=== PATIENT | female | born 1935 | race Caucasian/White ===

== ENCOUNTER → 2021-03-20 | Outpatient (CLI) | payer MEDICARE, BC ==
--- NOTE | 2021-03-20 09:26 | RAD ---
EXAM: Right lower extremity venous Doppler sonogram. HISTORY: Pain and swelling. TECHNIQUE: [place] scale and color Doppler sonographic evaluation of the right lower extremity veins wit h spectral waveform analysis was performed. FINDINGS: There is normal color flow, normal compressibility and there are normal spectral waveforms in the common femoral, superficial femoral, popliteal, posterior tibial and greater saphenous veins. IMPRESSION: No Doppler evidence of lower extremity deep venous thrombosis. Electronically signed by: Margie Gonzales MD (03/20/2021 9:24 AM) [id number]
== END ==
LOC: US 08:37
PROVIDERS: ATTEND Family Medicine
DX: R79.89 Other specified abnormal findings of blood chemistry (principal); M79.89 Other specified soft tissue disorders
CPT/HCPCS: 93971

== ENCOUNTER 2021-03-31 00:39 | Inpatient (IN) | payer MEDICARE, BC ==
[~2021-03-31] VITALS: Ht 152.4 cm; Wt 41.9 kg
[2021-03-31] VITALS (16 sets, daily range): BP systolic 118–162; BP diastolic 56–92
[2021-03-31] MEDS ORDERED: CETI10TA16 PO (01:10)
[2021-03-31] MEDS ORDERED: DILT120C99 PO (01:10)
[2021-03-31] MEDS ORDERED: PRED20TA PO (01:10)
[2021-03-31] MEDS ORDERED: SERT50TA PO (01:10)
[2021-03-31] MEDS ORDERED: LENA10CA PO (01:10)
[2021-03-31] MEDS ORDERED: FAMO20TA5 PO (01:10)
[2021-03-31] MEDS ORDERED: APIX2.5T PO (01:10)
[2021-03-31] MEDS ORDERED: LATA7.5D OU (01:10)
[2021-03-31] MEDS ORDERED: TRAZ-118 PO (01:10)
[2021-03-31] MEDS ORDERED: HYDR25TA PO (01:10)
[2021-03-31] MEDS ORDERED: TIMO10DR5 EACHEYE (01:10)
[2021-03-31] MEDS ORDERED: HYDR30CR74 TP (01:10)
[2021-03-31] MEDS ORDERED: TRIA15OI TP (01:14)
[2021-03-31] MEDS ORDERED: VALA500T9 PO (01:14)
[2021-03-31 03:11] LABS: BASO # 0.1 x10^3/uL (0.0-0.2); BASO % 2 % (0-3); EOS % 0 % (0-3); HEMATOCRIT 21.1 % (36.0-47.0); LYMPH # 0.5 x10^3/uL (1.0-4.8); LYMPH % 14 % (24-48); MEAN CORPUSCULAR HEMOGLOBIN 31 pg (25-35); MEAN CORPUSCULAR HGB CONC 30 g/dL (31-37); MEAN CORPUSCULAR VOLUME 104 fL (79-100); MONO # 0.4 x10^3/uL (0.0-1.1); MONO % 10 % (0-9); NEUT # 2.6 x10^3/uL (1.8-7.7); NEUT % 75 % (31-73); PLATELET COUNT 96 x10^3/uL (140-400); RED BLOOD COUNT 2.03 x10^6/uL (3.50-5.40); RED CELL DISTRIBUTION WIDTH 22.5 % (11.5-14.5); WHITE BLOOD COUNT 3.5 x10^3/uL (4.0-11.0)
[2021-03-31 03:13] LABS: HEMOGLOBIN 6.4 g/dL (12.0-15.5)
[2021-03-31 03:24] LABS: CALCIUM 8.3 mg/dL (8.5-10.1); CREATININE 1.3 mg/dL (0.6-1.0); GFR 38.7; POTASSIUM 4.1 mmol/L (3.5-5.1)
[2021-03-31 04:11] LABS: % BASOS 1 % (0-3); % EOS 1 % (0-5); % LYMPHS 13 % (24-48); % MONOS 7 % (0-10); % SEGS 78 % (35-66); ANISOCYTOSIS MOD; HYPOCHROMIA SLIGHT; NUCLEATED RBC 1; PLT ESTIMATE DECREASED (ADEQUATE); POLYCHROMASIA SLIGHT
[2021-03-31 04:12] LABS: HELMET CELLS OCC; SPHEROCYTES OCC; TARGET CELLS OCC
[2021-03-31 04:13] LABS: OVALOCYTES OCC
[2021-03-31] MEDS ORDERED: hydrOXYzine 25 MG TABLET PO PRN (05:00)
[2021-03-31] MEDS ORDERED: traZODone 50 MG TABLET. PO PRN (05:00)
[2021-03-31] MEDS: LENALIDOMIDE PO SCH (09:00)
--- NOTE | 2021-03-31 09:21 | PDOC1 ---
History and Physical Date of Service: DOS: DATE: 03/31/21 TIME: 09:20 Chief Complaint: Chief Complain: Shortness of breath History of Present Illness: HPI: 86-year-old female with past medical history of bone cancer currently on chemotherapy that was diagnosed 3 years ago, GERD, atrial fibrillation on Eliquis who comes in with shortness of breath. She was also found to be in A. fib RVR with heart rate in the 120s. Patient is also a chronic smoker. Upon my encounter this morning patient was saturating in the 70s while on a nonrebreather at 15 L. She was also given 1 unit PRBC for hemoglobin of 6.4. I gave her 20 mg of IV Lasix and she improved she is currently saturating 92% on a 15 L nonrebreathing mask. ABG is fairly normal without any signs of CO2 retention. She is mildly acidotic with a pH of 7.29. Repeat hemoglobin is 7.7. Creatinine is 1.3 troponins are 49 Past Medical/Surgical History: PMH/PSH: History of atrial fibrillation, GERD, tobacco use, bone cancer and currently on chemotherapy Allergies: Allergies: Coded Allergies: No Known Drug Allergies (Unverified , 03/31/21) Family History: Family History: Reviewed with no relevant findings in the chart Social History: Social History: Currently smoking about a half a pack per day Current Medications: Current Medications Current Medications Diltiazem HCl 125 mg/Sodium Chloride 125 ml @ 5 mls/hr CONT PRN IV PER PROTOCOL; Start 03/31/21 at 02:15 Apixaban (Eliquis) 2.5 mg BID PO ; Start 03/31/21 at 09:00 Famotidine (Pepcid) 20 mg DAILY PO ; Start 03/31/21 at 09:00 Sertraline HCl (Zoloft) 50 mg DAILY PO ; Start 03/31/21 at 09:00 Timolol Maleate (Timoptic 0.5% Oph) 1 drop BID OU ; Start 03/31/21 at 09:00 Trazodone HCl (Desyrel) 50 mg PRN QHS PRN PO sleep; Start 03/31/21 at 05:00 Valacyclovir HCl (Valtrex) 500 mg BID PO ; Start 03/31/21 at 09:00 Latanoprost (Xalatan) 1 drop DAILY OU ; Start 03/31/21 at 09:00 Non-Formulary Medication (Lenalidomide (Revlimid)) 1 cap DAILY PO ; Start 03/31/21 at 09:00; Status UNV Hydroxyzine HCl (Atarax) 25 mg PRN TID PRN PO ITCHING; Start 03/31/21 at 05:00 Active Scripts Active Reported Valacyclovir (Valacyclovir Hcl) 500 Mg Tablet 1 Tab PO BID Trazodone Hcl 50 Mg Tablet 1-2 Tab PO PRN QHS PRN Timoptic 0.5% (Timolol Maleate) 10 Ml Drops 1 Drop EACHEYE BID 30 Days Zoloft (Sertraline Hcl) 50 Mg Tablet 1 Tab PO DAILY Revlimid (Lenalidomide) 10 Mg Capsule 1 Cap PO DAILY 21 Days one capsule on days 1-14 of 28 day cycle Latanoprost 0.005% Eye Drop (Latanoprost/Pf) 7.5 Ml Drops 1 Drop OU DAILY Hydroxyzine Hcl 25 Mg Tablet 1 Tab PO TID PRN Diltiazem 24HR Cd (Diltiazem Hcl) 120 Mg Cap.er.24h 1 Cap PO BID 30 Days Eliquis (Apixaban) 2.5 Mg Tablet 2.5 Mg PO BID ROS: Review of Systems Review of System REVIEW OF SYSTEMS: GENERAL: Denies weakness SKIN: No bruising, hair changes or rashes. EYES: No blurred, double or loss of vision. NOSE AND THROAT: No history of nosebleeds, hoarseness or sore throat. HEART: No history of palpitations, chest pain or shortness of breath on exertion. LUNGS: Positive for shortness of breath GASTROINTESTINAL: Denies changes in appetite, nausea, vomiting, diarrhea or constipation. GENITOURINARY: No history of frequency, urgency, hesitancy or nocturia. NEUROLOGIC: Denies history of numbness, tingling, or tremor. PSYCHIATRIC: No history of panic, anxiety or depression. ENDOCRINE: No history of heat or cold intolerance, polyuria or polydipsia. EXTREMITIES: Denies joint pain, pain on walking or stiffness. Physical Exam: Vital Signs: Vital Signs Date Time Temp Pulse Resp B/P (MAP) Pulse Ox O2 Delivery O2 Flow Rate FiO2 03/31/21 07:00 104 146/68 (94) 87 NonRebreather Mask 15.0 03/31/21 06:20 95.6 22 95.6 Physcial Exam: General: Frail and chronically ill-appearing. Cachectic. Temporal wasting. HEENT: Pupils equally round and reactive to light, EOMI, no discharge, normal conjunctiva Neck: Supple, no nuchal rigidity, no JVD, trachea midline, no tenderness Cardiac: RRR, no murmurs, no gallops, no rubs Chest/Lungs: CTAB, no wheeze, no rhonchi, minimal crackles Abdomen: soft, non-distended, no guarding, no peritoneal signs, non-tender Back: No tenderness Extremities: no edema, pulses intact, non-tender,capillary refill <3 sec bilateral upper and lower extremities, Neuro: Alert and oriented x 4, no focal deficits, normal speech Labs: Labs: Laboratory Tests Test 03/31/21 02:45 White Blood Count 3.5 x10^3/uL (4.0-11.0) Red Blood Count 2.03 x10^6/uL (3.50-5.40) Hemoglobin 6.4 g/dL (12.0-15.5) Hematocrit 21.1 % (36.0-47.0) Mean Corpuscular Volume 104 fL (79-100) Mean Corpuscular Hemoglobin 31 pg (25-35) Mean Corpuscular Hemoglobin Concent 30 g/dL (31-37) Red Cell Distribution Width 22.5 % (11.5-14.5) Platelet Count 96 x10^3/uL (140-400) Neutrophils (%) (Auto) 75 % (31-73) Lymphocytes (%) (Auto) 14 % (24-48) Monocytes (%) (Auto) 10 % (0-9) Eosinophils (%) (Auto) 0 % (0-3) Basophils (%) (Auto) 2 % (0-3) Neutrophils # (Auto) 2.6 x10^3/uL (1.8-7.7) Lymphocytes # (Auto) 0.5 x10^3/uL (1.0-4.8) Monocytes # (Auto) 0.4 x10^3/uL (0.0-1.1) Eosinophils # (Auto) 0.0 x10^3/uL (0.0-0.7) Basophils # (Auto) 0.1 x10^3/uL (0.0-0.2) Segmented Neutrophils % 78 % (35-66) Lymphocytes % 13 % (24-48) Monocytes % 7 % (0-10) Eosinophils % 1 % (0-5) Basophils % 1 % (0-3) Nucleated Red Blood Cells 1 Platelet Estimate Decreased (ADEQUATE) Polychromasia Slight Hypochromasia Slight Anisocytosis Mod Spherocytes Occ Target Cells Occ Ovalocytes Occ Helmet Cells Occ Sodium Level 141 mmol/L (136-145) Potassium Level 4.1 mmol/L (3.5-5.1) Chloride Level 108 mmol/L (98-107) Carbon Dioxide Level 25 mmol/L (21-32) Anion Gap 8 (6-14) Blood Urea Nitrogen 33 mg/dL (7-20) Creatinine 1.3 mg/dL (0.6-1.0) Estimated GFR (Cockcroft-Gault) 38.7 Glucose Level 121 mg/dL (70-99) Calcium Level 8.3 mg/dL (8.5-10.1) Troponin I High Sensitivity 49 ng/L (4-50) Laboratory Tests Test 03/31/21 02:45 White Blood Count 3.5 x10^3/uL (4.0-11.0) Red Blood Count 2.03 x10^6/uL (3.50-5.40) Hemoglobin 6.4 g/dL (12.0-15.5) Hematocrit 21.1 % (36.0-47.0) Mean Corpuscular Volume 104 fL (79-100) Mean Corpuscular Hemoglobin 31 pg (25-35) Mean Corpuscular Hemoglobin Concent 30 g/dL (31-37) Red Cell Distribution Width 22.5 % (11.5-14.5) Platelet Count 96 x10^3/uL (140-400) Neutrophils (%) (Auto) 75 % (31-73) Lymphocytes (%) (Auto) 14 % (24-48) Monocytes (%) (Auto) 10 % (0-9) Eosinophils (%) (Auto) 0 % (0-3) Basophils (%) (Auto) 2 % (0-3) Neutrophils # (Auto) 2.6 x10^3/uL (1.8-7.7) Lymphocytes # (Auto) 0.5 x10^3/uL (1.0-4.8) Monocytes # (Auto) 0.4 x10^3/uL (0.0-1.1) Eosinophils # (Auto) 0.0 x10^3/uL (0.0-0.7) Basophils # (Auto) 0.1 x10^3/uL (0.0-0.2) Segmented Neutrophils % 78 % (35-66) Lymphocytes % 13 % (24-48) Monocytes % 7 % (0-10) Eosinophils % 1 % (0-5) Basophils % 1 % (0-3) Nucleated Red Blood Cells 1 Platelet Estimate Decreased (ADEQUATE) Polychromasia Slight Hypochromasia Slight Anisocytosis Mod Spherocytes Occ Target Cells Occ Ovalocytes Occ Helmet Cells Occ Sodium Level 141 mmol/L (136-145) Potassium Level 4.1 mmol/L (3.5-5.1) Chloride Level 108 mmol/L (98-107) Carbon Dioxide Level 25 mmol/L (21-32) Anion Gap 8 (6-14) Blood Urea Nitrogen 33 mg/dL (7-20) Creatinine 1.3 mg/dL (0.6-1.0) Estimated GFR (Cockcroft-Gault) 38.7 Glucose Level 121 mg/dL (70-99) Calcium Level 8.3 mg/dL (8.5-10.1) Troponin I High Sensitivity 49 ng/L (4-50) Images: Images Chest x-ray reviewed from [facility] on March 30, 2021 showing left lower lobe infiltrates. Repeat chest x-ray shows minimal bilateral pleural effusions. Assessment/Plan Assessment/Plan Pancytopenia likely related to bone cancer Macrocytic anemia requiring 1 unit PRBC transfusion, possibly due to elemental deficiency A. fib RVR Tobacco abuse Left lower lobe pneumonia, possible gram-negative organisms Severe protein malnutrition Admit to hospitalist service for further management 1 unit PRBC transfusion for anemia Pending B12 levels Continue telemetry monitoring Cardiology consult Hematology consult for pancytopenia Continue Cardizem drip Continue empiric IV antibiotics Pending MRSA and Legionella urine antigen results Pending TSH O2 supplementation to maintain O2 saturation between 88 to 92% Nutrition consult Eliquis for DVT prophylaxis Protonix GI prophylaxis ADA diet CODE STATUS full code Discussed with RN and SW Disposition inpatient management as above DPOA: Son In addition to my E/M visit, advance care planning done with A total time of 20 minutes was spent from 930 to 950 face to face in discussion regarding the patient's goals of care, CODE STATUS. Justifications for Admission Other Justification MICHELLE MARTINEZ MD Mar 31, 2021 09:21
[2021-03-31 09:25] LABS: BASE EXCESS ABG -6 mmol/L (-3-3); HCO3 ABG 21 mmol/L (21-28); PCO2 ABG 44 mmHg (35-46); PO2 ABG 65 mmHg (65-108); SAT O2 ABG 90 % (92-99)
[2021-03-31 09:30] LABS: FIO2 ABG 15 NRB
--- NOTE | 2021-03-31 09:36 | RAD ---
EXAM: Chest, single view. HISTORY: Respiratory distress. COMPARISON: 03/30/2021 FINDINGS: A frontal view of the chest is obtained. There has been increase in moderate pleural effusi ons and diffuse lower lobe predominant interstitial and alveolar infiltrate. There are suspected part ial left lower lobe consolidation. There is a stable prominent cardiac silhouette. There is no pneumo thorax. There is a small benign lucent cortical lesion within the right femoral metaphysis, of no cli nical significance. IMPRESSION: 1. Increase in moderate pleural effusions and diffuse lower lobe predominant infiltrate. 2. Cardiomegaly. Electronically signed by: Margie Gonzales MD (03/31/2021 9:34 AM) [facility]
[2021-03-31] MEDS ORDERED: FUROSEMIDE 40 MG/4 ML VIAL. IVP ONE (09:45)
[2021-03-31] MEDS: LATANOPROST 0.005% OPHTH SOLUTION 2.5ML BOTTLE. OU SCH (10:52)
[2021-03-31] MEDS: TIMOLOL 0.5% OPHTH SOLUTION 5ML BOTTLE. OU SCH ×2 (10:52→19:13)
[2021-03-31] MEDS: valACYclovir 500 MG TABLET. PO SCH ×2 (10:52→19:13)
[2021-03-31] MEDS: APIXABAN 2.5 MG TABLET. PO SCH ×2 (10:53→19:13)
[2021-03-31] MEDS: FAMOTIDINE 20 MG TABLET. PO SCH (10:53)
[2021-03-31] MEDS: SERTRALINE 50 MG TABLET. PO SCH (10:53)
[2021-03-31 12:28] LABS: HEMATOCRIT 24.8 % (36.0-47.0); HEMOGLOBIN 7.7 g/dL (12.0-15.5)
--- NOTE | 2021-03-31 12:59 | PDOC2 ---
CONSULT Date of Consult Date of Consult DATE: 03/31/21 TIME: 12:58 Reason for Consult Reason for Consult: Atrial fibrillation with RVR Referring Physician Referring Physician: Dr. Fish Identification/Chief Complaint Chief Complaint Shortness of breath Source Source: Chart review History of Present Illness Reason for Visit: 86-year-old female initially presented to [facility] ED with worsening shortness of breath. She apparently has been short of breath for past 3 years but got worse recently. Her oxygen saturation however in the ED was 95 to 96% on room air. She was noted to have atrial fibrillation with RVR and transferred to [facility] for further management. Patient is a poor historian but she does appear to have previous history of atrial fibrillation since her medications included Cardizem and Eliquis. There is no history of chest pain, palpitations or syncope based on chart review. She is currently receiving chemotherapy for bone cancer. Past Medical History Past Medical History Permanent atrial fibrillation Bone cancer Family History Family History Not contributory Social History Social History Patient is a non-smoker and a nondrinker Current Medications Current Medications Current Medications Diltiazem HCl 125 mg/Sodium Chloride 125 ml @ 5 mls/hr CONT PRN IV PER PROTOCO L; Start 03/31/21 at 02:15 Apixaban (Eliquis) 2.5 mg BID PO Last administered on 03/31/21at 10:53; Start 03/31/21 at 09:00 Famotidine (Pepcid) 20 mg DAILY PO Last administered on 03/31/21 10:53; Start 03/31/21 at 09:00 Sertraline HCl (Zoloft) 50 mg DAILY PO Last administered on 03/31/21 10:53; Start 03/31/21 at 09:00 Timolol Maleate (Timoptic 0.5% Oph) 1 drop BID OU Last administered on 03/31/21at 10:52; Start 03/31/21 at 09:00 Trazodone HCl (Desyrel) 50 mg PRN QHS PRN PO sleep; Start 03/31/21 at 05:00 Valacyclovir HCl (Valtrex) 500 mg BID PO Last administered on 03/31/21at 10:52; Start 03/31/21 at 09:00 Latanoprost (Xalatan) 1 drop DAILY OU Last administered on 2/20/22at 10:52; Start 03/31/21 at 09:00 Non-Formulary Medication (Lenalidomide (Revlimid)) 1 cap DAILY PO ; Start 03/31/21 at 09:00; Status UNV Hydroxyzine HCl (Atarax) 25 mg PRN TID PRN PO ITCHING; Start 03/31/21 at 05:00 Furosemide (Lasix) 20 mg 1X ONCE IVP Last administered on 03/31/21at 10:05; Start 03/31/21 at 09:45; Stop 03/31/21 at 09:46; Status DC Active Scripts Active Reported Valacyclovir (Valacyclovir Hcl) 500 Mg Tablet 1 Tab PO BID Trazodone Hcl 50 Mg Tablet 1-2 Tab PO PRN QHS PRN Timoptic 0.5% (Timolol Maleate) 10 Ml Drops 1 Drop EACHEYE BID 30 Days Zoloft (Sertraline Hcl) 50 Mg Tablet 1 Tab PO DAILY Revlimid (Lenalidomide) 10 Mg Capsule 1 Cap PO DAILY 21 Days one capsule on days 1-14 of 28 day cycle Latanoprost 0.005% Eye Drop (Latanoprost/Pf) 7.5 Ml Drops 1 Drop OU DAILY Hydroxyzine Hcl 25 Mg Tablet 1 Tab PO TID PRN Diltiazem 24HR Cd (Diltiazem Hcl) 120 Mg Cap.er.24h 1 Cap PO BID 30 Days Eliquis (Apixaban) 2.5 Mg Tablet 2.5 Mg PO BID Allergies Allergies: Coded Allergies: No Known Drug Allergies (Unverified , 03/31/21) ROS Review of System Full review of systems cannot be obtained due to patient's baseline mental status Physical Exam General: mild distress HEENT: Atraumatic Lungs: Other (Bilateral scattered crepitations) Heart: Other (Tachycardic and irregular) Abdomen: Soft Extremities: No edema Neuro: Normal speech Psych/Mental Status: Mood NL Vitals VITALS Vital Signs Date Time Temp Pulse Resp B/P (MAP) Pulse Ox O2 Delivery O2 Flow Rate FiO2 03/31/21 10:22 96.2 98 131/83 (99) 92 NonRebreather Mask 15.0 96.2 03/31/21 06:20 22 Labs Labs Laboratory Tests Test 03/31/21 02:45 03/31/21 09:16 2/20/22 12:00 White Blood Count 3.5 x10^3/uL (4.0-11.0) Red Blood Count 2.03 x10^6/uL (3.50-5.40) Hemoglobin 6.4 g/dL (12.0-15.5) 7.7 g/dL (12.0-15.5) Hematocrit 21.1 % (36.0-47.0) 24.8 % (36.0-47.0) Mean Corpuscular Volume 104 fL (79-100) Mean Corpuscular Hemoglobin 31 pg (25-35) Mean Corpuscular Hemoglobin Concent 30 g/dL (31-37) 31 g/dL (31-37) Red Cell Distribution Width 22.5 % (11.5-14.5) Platelet Count 96 x10^3/uL (140-400) Neutrophils (%) (Auto) 75 % (31-73) Lymphocytes (%) (Auto) 14 % (24-48) Monocytes (%) (Auto) 10 % (0-9) Eosinophils (%) (Auto) 0 % (0-3) Basophils (%) (Auto) 2 % (0-3) Neutrophils # (Auto) 2.6 x10^3/uL (1.8-7.7) Lymphocytes # (Auto) 0.5 x10^3/uL (1.0-4.8) Monocytes # (Auto) 0.4 x10^3/uL (0.0-1.1) Eosinophils # (Auto) 0.0 x10^3/uL (0.0-0.7) Basophils # (Auto) 0.1 x10^3/uL (0.0-0.2) Segmented Neutrophils % 78 % (35-66) Lymphocytes % 13 % (24-48) Monocytes % 7 % (0-10) Eosinophils % 1 % (0-5) Basophils % 1 % (0-3) Nucleated Red Blood Cells 1 Platelet Estimate Decreased (ADEQUATE) Polychromasia Slight Hypochromasia Slight Anisocytosis Mod Spherocytes Occ Target Cells Occ Ovalocytes Occ Helmet Cells Occ Sodium Level 141 mmol/L (136-145) Potassium Level 4.1 mmol/L (3.5-5.1) Chloride Level 108 mmol/L (98-107) Carbon Dioxide Level 25 mmol/L (21-32) Anion Gap 8 (6-14) Blood Urea Nitrogen 33 mg/dL (7-20) Creatinine 1.3 mg/dL (0.6-1.0) Estimated GFR (Cockcroft-Gault) 38.7 Glucose Level 121 mg/dL (70-99) Calcium Level 8.3 mg/dL (8.5-10.1) Troponin I High Sensitivity 49 ng/L (4-50) O2 Saturation 90 % (92-99) Arterial Blood pH 7.29 (7.35-7.45) Arterial Blood pCO2 at Patient Temp 44 mmHg (35-46) Arterial Blood pO2 at Patient Temp 65 mmHg (65-108) Arterial Blood HCO3 21 mmol/L (21-28) Arterial Blood Base Excess -6 mmol/L (-3-3) FiO2 15 nrb Laboratory Tests Test 03/31/21 02:45 03/31/21 09:16 03/31/21 12:00 White Blood Count 3.5 x10^3/uL (4.0-11.0) Red Blood Count 2.03 x10^6/uL (3.50-5.40) Hemoglobin 6.4 g/dL (12.0-15.5) 7.7 g/dL (12.0-15.5) Hematocrit 21.1 % (36.0-47.0) 24.8 % (36.0-47.0) Mean Corpuscular Volume 104 fL (79-100) Mean Corpuscular Hemoglobin 31 pg (25-35) Mean Corpuscular Hemoglobin Concent 30 g/dL (31-37) 31 g/dL (31-37) Red Cell Distribution Width 22.5 % (11.5-14.5) Platelet Count 96 x10^3/uL (140-400) Neutrophils (%) (Auto) 75 % (31-73) Lymphocytes (%) (Auto) 14 % (24-48) Monocytes (%) (Auto) 10 % (0-9) Eosinophils (%) (Auto) 0 % (0-3) Basophils (%) (Auto) 2 % (0-3) Neutrophils # (Auto) 2.6 x10^3/uL (1.8-7.7) Lymphocytes # (Auto) 0.5 x10^3/uL (1.0-4.8) Monocytes # (Auto) 0.4 x10^3/uL (0.0-1.1) Eosinophils # (Auto) 0.0 x10^3/uL (0.0-0.7) Basophils # (Auto) 0.1 x10^3/uL (0.0-0.2) Segmented Neutrophils % 78 % (35-66) Lymphocytes % 13 % (24-48) Monocytes % 7 % (0-10) Eosinophils % 1 % (0-5) Basophils % 1 % (0-3) Nucleated Red Blood Cells 1 Platelet Estimate Decreased (ADEQUATE) Polychromasia Slight Hypochromasia Slight Anisocytosis Mod Spherocytes Occ Target Cells Occ Ovalocytes Occ Helmet Cells Occ Sodium Level 141 mmol/L (136-145) Potassium Level 4.1 mmol/L (3.5-5.1) Chloride Level 108 mmol/L (98-107) Carbon Dioxide Level 25 mmol/L (21-32) Anion Gap 8 (6-14) Blood Urea Nitrogen 33 mg/dL (7-20) Creatinine 1.3 mg/dL (0.6-1.0) Estimated GFR (Cockcroft-Gault) 38.7 Glucose Level 121 mg/dL (70-99) Calcium Level 8.3 mg/dL (8.5-10.1) Troponin I High Sensitivity 49 ng/L (4-50) O2 Saturation 90 % (92-99) Arterial Blood pH 7.29 (7.35-7.45) Arterial Blood pCO2 at Patient Temp 44 mmHg (35-46) Arterial Blood pO2 at Patient Temp 65 mmHg (65-108) Arterial Blood HCO3 21 mmol/L (21-28) Arterial Blood Base Excess -6 mmol/L (-3-3) FiO2 15 nrb Assessment/Plan Assessment/Plan 1. Atrial fibrillation, most probably permanent. Heart rate probably elevated due to respiratory distress. Continue to titrate intravenous Cardizem for better rate control. Continue Eliquis for stroke prophylaxis. Check 2D echo to assess LV systolic function. 2. Pneumonia: Continue antibiotics per primary team 3. Anemia: Per IM 4. Acute renal insufficiency, most probably secondary to dehydration. Continue intravenous fluids. 5. Bone cancer: Chemotherapy per oncology team Thank you for your consultation JET MEJIA MD Mar 31, 2021 12:58
[2021-03-31] MEDS ORDERED: LORazepam 0.5 MG TABLET PO PRN (13:30)
[2021-03-31] MEDS ORDERED: DOCUSATE SODIUM 100 MG CAPSULE. PO PRN (13:30)
[2021-03-31] MEDS ORDERED: PROCHLORPERAZINE 10 MG/2 ML VIAL. IV PRN (13:30)
[2021-03-31] MEDS ORDERED: diphenhydrAMINE 50 MG/ML VIAL IVP PRN (13:30)
[2021-03-31] MEDS ORDERED: ONDANSETRON PF 4 MG/2 ML VIAL. IVP PRN (13:30)
[2021-03-31] MEDS ORDERED: ACETAMINOPHEN 325 MG TABLET. PO PRN (13:30)
[2021-03-31] MEDS ORDERED: ZOLPIDEM 5 MG TABLET. PO PRN (13:30)
[2021-03-31] MEDS ORDERED: DEXTROSE 50% 25 GM / 50ML DISP.SYRIN. IV PRN (13:30)
[2021-03-31] MEDS ORDERED: diphenhydrAMINE HCL 25 MG CAPSULE PO PRN ×2 (13:30)
[2021-03-31] MEDS ORDERED: SENNOSIDES 8.6 MG TABLET PO PRN (13:30)
[2021-03-31] MEDS: DOXYCYCLINE HYCLATE 100 MG TABLET PO SCH ×2 (14:34→19:13)
[2021-03-31] MEDS: CEFEPIME HCL IV Push 1 GM VIAL. IVP SCH (14:34)
[2021-03-31 15:15] LABS: FECAL OB PT NEGATIVE (NEG)
[2021-03-31] MEDS: NICOTINE 14MG PATCH. TD SCH (19:12)
[2021-03-31] MEDS ORDERED: ONDANSETRON PF 4 MG/2 ML VIAL. IVP ONE (21:45)
[2021-03-31] MEDS ORDERED: ALBUTEROL SULFATE 2.5 MG/3 ML NEBU. NEB PRN (21:45)
[2021-03-31] MEDS ORDERED: guaiFENesin DM 200MG/20MG 10 ML SYRUP PO PRN (21:45)
[2021-03-31] MEDS: IPRATRPIUM/ALBUTEROL 0.5/2.5MG 3 ML NEBU. NEB SCH (22:06)
[2021-03-31] MEDS: BUDESONIDE 0.5 MG/2 ML NEBU. NEB SCH (22:06)
[2021-04-01 02:26] VITALS: BP 123/58
[2021-04-01 04:18] LABS: BASO % 1 % (0-3); EOS % 0 % (0-3); HEMATOCRIT 24.2 % (36.0-47.0); HEMOGLOBIN 7.7 g/dL (12.0-15.5); LYMPH # 0.3 x10^3/uL (1.0-4.8); LYMPH % 6 % (24-48); MEAN CORPUSCULAR HEMOGLOBIN 32 pg (25-35); MEAN CORPUSCULAR HGB CONC 32 g/dL (31-37); MEAN CORPUSCULAR VOLUME 100 fL (79-100); MONO # 0.6 x10^3/uL (0.0-1.1); MONO % 11 % (0-9); NEUT # 4.4 x10^3/uL (1.8-7.7); NEUT % 83 % (31-73); PLATELET COUNT 77 x10^3/uL (140-400); RED BLOOD COUNT 2.43 x10^6/uL (3.50-5.40); RED CELL DISTRIBUTION WIDTH 22.9 % (11.5-14.5); WHITE BLOOD COUNT 5.3 x10^3/uL (4.0-11.0)
[2021-04-01 04:28] LABS: CALCIUM 7.9 mg/dL (8.5-10.1); CREATININE 1.3 mg/dL (0.6-1.0); GFR 38.7; PHOSPHORUS 5.6 mg/dL (2.6-4.7)
[2021-04-01] MEDS: LEVOTHYROXINE 50 MCG TABLET PO SCH ×2 (05:58→06:00)
[2021-04-01] MEDS: IPRATRPIUM/ALBUTEROL 0.5/2.5MG 3 ML NEBU. NEB SCH ×4 (06:54→21:02)
[2021-04-01] MEDS: BUDESONIDE 0.5 MG/2 ML NEBU. NEB SCH ×2 (06:54→21:02)
[2021-04-01 07:00] VITALS: BP 116/54
[2021-04-01] MEDS: LATANOPROST 0.005% OPHTH SOLUTION 2.5ML BOTTLE. OU SCH (09:00)
[2021-04-01] MEDS: NICOTINE 14MG PATCH. TD SCH (09:00)
[2021-04-01] MEDS: LENALIDOMIDE PO SCH (09:00)
[2021-04-01] MEDS: FAMOTIDINE 20 MG TABLET. PO SCH (09:00)
[2021-04-01] MEDS: DOXYCYCLINE HYCLATE 100 MG TABLET PO SCH ×2 (09:00→21:00)
[2021-04-01] MEDS: TIMOLOL 0.5% OPHTH SOLUTION 5ML BOTTLE. OU SCH ×2 (09:00→22:22)
[2021-04-01] MEDS: valACYclovir 500 MG TABLET. PO SCH ×2 (09:00→21:00)
[2021-04-01] MEDS: SERTRALINE 50 MG TABLET. PO SCH (09:00)
[2021-04-01] MEDS ORDERED: EPOE200014 IJ (10:26)
[2021-04-01 10:51] VITALS: BP 126/60
--- NOTE | 2021-04-01 11:23 | PDOC ---
MEGAN DREW ASSESSMENT MANAGER 04/01/21 1123: CARDIO Progress Notes Date and Time Date of Service 04/01/21 Time of Evaluation 1115 Subjective Subjective: Other (on BiPAP) Vitals Vitals Vital Signs Date Time Temp Pulse Resp B/P (MAP) Pulse Ox O2 Delivery O2 Flow Rate FiO2 04/01/21 11:10 100 BiPAP/CPAP 04/01/21 10:51 97.8 83 21 126/60 (82) 60.0 97.8 Weight Weight [ ] Input and Output Intake and Output Intake and Output 04/01/21 07:00 Intake Total 250 ml Output Total 1000 ml Balance -750 ml Intake Oral 250 ml Output Urine Total 1000 ml # Voids 3 Laboratory Labs Laboratory Tests Test 03/31/21 12:00 03/31/21 14:00 04/01/21 02:55 Hemoglobin 7.7 g/dL (12.0-15.5) 7.7 g/dL (12.0-15.5) Hematocrit 24.8 % (36.0-47.0) 24.2 % (36.0-47.0) Mean Corpuscular Hemoglobin Concent 31 g/dL (31-37) 32 g/dL (31-37) Stool Occult Blood Negative (NEG) White Blood Count 5.3 x10^3/uL (4.0-11.0) Red Blood Count 2.43 x10^6/uL (3.50-5.40) Mean Corpuscular Volume 100 fL (79-100) Mean Corpuscular Hemoglobin 32 pg (25-35) Red Cell Distribution Width 22.9 % (11.5-14.5) Platelet Count 77 x10^3/uL (140-400) Neutrophils (%) (Auto) 83 % (31-73) Lymphocytes (%) (Auto) 6 % (24-48) Monocytes (%) (Auto) 11 % (0-9) Eosinophils (%) (Auto) 0 % (0-3) Basophils (%) (Auto) 1 % (0-3) Neutrophils # (Auto) 4.4 x10^3/uL (1.8-7.7) Lymphocytes # (Auto) 0.3 x10^3/uL (1.0-4.8) Monocytes # (Auto) 0.6 x10^3/uL (0.0-1.1) Eosinophils # (Auto) 0.0 x10^3/uL (0.0-0.7) Basophils # (Auto) 0.0 x10^3/uL (0.0-0.2) Sodium Level 141 mmol/L (136-145) Potassium Level 4.0 mmol/L (3.5-5.1) Chloride Level 106 mmol/L (98-107) Carbon Dioxide Level 24 mmol/L (21-32) Anion Gap 11 (6-14) Blood Urea Nitrogen 35 mg/dL (7-20) Creatinine 1.3 mg/dL (0.6-1.0) Estimated GFR (Cockcroft-Gault) 38.7 Glucose Level 108 mg/dL (70-99) Calcium Level 7.9 mg/dL (8.5-10.1) Phosphorus Level 5.6 mg/dL (2.6-4.7) Magnesium Level 2.0 mg/dL (1.8-2.4) Physical Exam HEENT: Neck Supple W Full Motion Chest: Symmetric LUNGS: Other (on BiPAP) Heart: irregularly irregular (AFIB, rate near 115) Abdomen: Soft N/T Extremities: No Edema Neurology: other (sleeping ) Assessment Assessment 1. Atrial fibrillation, most probably permanent. Heart rate probably elevated due to respiratory distress. Continue IV Cardizem for rate control- transition to PO when able to take oral. Hold Eliquis with anemia, thrombocytopenia. Echo pending 2. Acute on chronic respiratory failure acute probable diastolic CHF, pleural effusion and probable pneumonia: Continue antibiotics per primary team. s/p IV Lasix. Requiring BiPAP 3. Anemia, thrombocytopenia: requiring transfusion; Per IM 4. JÚNIOR, ? CKD; Cr stable 5. Bone cancer: on chemotherapy 6. Hypothyroidism; TSH 12 Justicifation of Admission Dx: Justifications for Admission: Justification of Admission Dx: Yes Comments: Acute respiratory failure Acute probable diastolic CHF PNA AFIB with RVR JET MEJIA MD 04/02/21 0653: CARDIO Progress Notes Assessment Assessment Patient seen and examined 04/01/2021. Agree with CAR HOP's assessment and plan. Atrial fibrillation, most probably permanent with heart rate better controlled with Cardizem gtt. Change Cardizem to p.o. when able 2D echo showed LVEF 55% with mild to moderate mitral stenosis, moderate mitral regurgitation and moderate to severe tricuspid regurgitation. Acute on chronic diastolic heart failure better compensated Continue management for anemia per MEGAN BETTENCOURT APRN Apr 01, 2021 11:23 JET MEJIA MD Apr 02, 2021 06:53
--- NOTE | 2021-04-01 12:30 | NUR ---
SS following for discharge planning. SS reviewed pt chart and discussed with pt RN. Pt is from home and is currently on BIPAP at 60%. Cardiology following. Ovidio drip. Pt on IV Cefepime. SS will continue to follow for discharge planning.
--- NOTE | 2021-04-01 14:06 | PDOC ---
[employer] PROGRESS NOTE Date of Service DOS: DATE: 04/01/21 TIME: 14:05 Chief Complaint Chief Complaint Assessment/Plan Pancytopenia likely related to bone cancer Macrocytic anemia requiring 1 unit PRBC transfusion, possibly due to elemental deficiency A. fib RVR Tobacco abuse Left lower lobe pneumonia, possible gram-negative organisms Severe protein malnutrition Admit to hospitalist service for further management 1 unit PRBC transfusion for anemia Pending B12 levels Continue telemetry monitoring Cardiology consult Hematology consult for pancytopenia Continue Cardizem drip Continue empiric IV antibiotics Pending MRSA and Legionella urine antigen results Pending TSH O2 supplementation to maintain O2 saturation between 88 to 92% Nutrition consult Eliquis for DVT prophylaxis Protonix GI prophylaxis ADA diet CODE STATUS full code Discussed with RN and SW Disposition inpatient management as above DPOA: Son History of Present Illness History of Present Illness 86-year-old female with past medical history of bone cancer currently on chemotherapy that was diagnosed 3 years ago, GERD, atrial fibrillation on Eliquis who comes in with shortness of breath. She was also found to be in A. fib RVR with heart rate in the 120s. Patient is also a chronic smoker. Upon my encounter this morning patient was saturating in the 70s while on a nonrebreather at 15 L. She was also given 1 unit PRBC for hemoglobin of 6.4. I gave her 20 mg of IV Lasix and she improved she is currently saturating 92% on a 15 L nonrebreathing mask. ABG is fairly normal without any signs of CO2 retention. She is mildly acidotic with a pH of 7.29. Repeat hemoglobin is 7.7. Creatinine is 1.3 troponins are 49 04/01/2021 No acute events overnight. Patient seen examined bedside. Patient currently on BiPAP and saturating at 60 to 80%. Able to get her O2 saturation up to 90%. Pulmonology has been consulted. Discussed CODE STATUS with patient and also son and son states that the patient still wants to be full code. A total of 35 minutes of critical care time was spent in reviewing chart, labs, and images. Discussed with RN and SW. Vitals/I&O Vitals/I&O: Vital Signs Date Time Temp Pulse Resp B/P (MAP) Pulse Ox O2 Delivery O2 Flow Rate FiO2 04/01/21 13:21 91 BiPAP/CPAP 04/01/21 10:51 97.8 83 21 126/60 (82) 60.0 97.8 I & O 03/31/21 03/31/21 04/01/21 15:00 23:00 07:00 Intake Total 100 ml 150 ml 0 ml Output Total 1000 ml Balance 100 ml 150 ml -1000 ml Physical Exam General: mild distress Heart: Regular rate, Other (Tachycardic and irregular) Lungs: Crackles Abdomen: Soft Extremities: No clubbing, No edema Skin: No rashes Labs Labs: Laboratory Tests Test 03/31/21 14:55 04/01/21 02:55 Nasal Screen MRSA (PCR) Negative (NEGATIVE) White Blood Count 5.3 x10^3/uL (4.0-11.0) Red Blood Count 2.43 x10^6/uL (3.50-5.40) Hemoglobin 7.7 g/dL (12.0-15.5) Hematocrit 24.2 % (36.0-47.0) Mean Corpuscular Volume 100 fL (79-100) Mean Corpuscular Hemoglobin 32 pg (25-35) Mean Corpuscular Hemoglobin Concent 32 g/dL (31-37) Red Cell Distribution Width 22.9 % (11.5-14.5) Platelet Count 77 x10^3/uL (140-400) Neutrophils (%) (Auto) 83 % (31-73) Lymphocytes (%) (Auto) 6 % (24-48) Monocytes (%) (Auto) 11 % (0-9) Eosinophils (%) (Auto) 0 % (0-3) Basophils (%) (Auto) 1 % (0-3) Neutrophils # (Auto) 4.4 x10^3/uL (1.8-7.7) Lymphocytes # (Auto) 0.3 x10^3/uL (1.0-4.8) Monocytes # (Auto) 0.6 x10^3/uL (0.0-1.1) Eosinophils # (Auto) 0.0 x10^3/uL (0.0-0.7) Basophils # (Auto) 0.0 x10^3/uL (0.0-0.2) Sodium Level 141 mmol/L (136-145) Potassium Level 4.0 mmol/L (3.5-5.1) Chloride Level 106 mmol/L (98-107) Carbon Dioxide Level 24 mmol/L (21-32) Anion Gap 11 (6-14) Blood Urea Nitrogen 35 mg/dL (7-20) Creatinine 1.3 mg/dL (0.6-1.0) Estimated GFR (Cockcroft-Gault) 38.7 Glucose Level 108 mg/dL (70-99) Calcium Level 7.9 mg/dL (8.5-10.1) Phosphorus Level 5.6 mg/dL (2.6-4.7) Magnesium Level 2.0 mg/dL (1.8-2.4) Comment Review of Relevant I have reviewed the following items morris (where applicable) has been applied. Medications: Current Medications Medications (Trade) Dose Ordered Sig/Jaqueline Route PRN Reason Start Time Stop Time Status Last Admin Dose Admin Nicotine (Nicoderm Cq 14mg) 1 patch DAILY TD 03/31/21 19:00 03/31/21 19:12 Ondansetron HCl (Zofran) 4 mg 1X ONCE IVP 03/31/21 21:45 03/31/21 21:46 DC 03/31/21 21:55 Budesonide (Pulmicort) 0.5 mg RTBID NEB 03/31/21 21:45 04/01/21 06:54 Albuterol/ Ipratropium (Duoneb) 3 ml RTQID NEB 03/31/21 21:45 04/01/21 11:09 Justifications for Admission Other Justification Anemia MICHELLE MARTINEZ MD Apr 01, 2021 14:06
[2021-04-01] MEDS: CEFEPIME HCL IV Push 1 GM VIAL. IVP SCH (14:59)
[2021-04-01 15:00] VITALS: BP 127/59
[2021-04-01 19:00] VITALS: BP 147/65
--- NOTE | 2021-04-01 22:30 | NUR ---
Pt awake and stating that she wants a drink of water. Removed pt from BIPAP and placed on nonrebreather. Gave pt a small sip of water via cup and pt began coughing and choking and showing signs of aspiration. Will keep pt NPO until pt can be eval by speech therapy. Held all po meds at this time. Will pass this assessment on to the day RN. Call light within reach. Bed alarm on. Mitts remain on pt because pt keeps trying to pull off her BIPAP and is desating down into the 70s%. Pt remains on cardizem gtt with her HR in afib in the low 100s. Will monitor.
[2021-04-01 23:00] VITALS: BP 135/62
[2021-04-02 03:00] VITALS: BP 135/64
[2021-04-02 04:18] LABS: BASO % 1 % (0-3); EOS % 0 % (0-3); HEMATOCRIT 21.8 % (36.0-47.0); LYMPH # 0.4 x10^3/uL (1.0-4.8); LYMPH % 10 % (24-48); MEAN CORPUSCULAR HEMOGLOBIN 31 pg (25-35); MEAN CORPUSCULAR HGB CONC 31 g/dL (31-37); MEAN CORPUSCULAR VOLUME 100 fL (79-100); MONO # 0.5 x10^3/uL (0.0-1.1); MONO % 12 % (0-9); NEUT # 2.9 x10^3/uL (1.8-7.7); NEUT % 78 % (31-73); PLATELET COUNT 79 x10^3/uL (140-400); RED BLOOD COUNT 2.19 x10^6/uL (3.50-5.40); WHITE BLOOD COUNT 3.8 x10^3/uL (4.0-11.0)
[2021-04-02 04:27] LABS: HEMOGLOBIN 6.8 g/dL (12.0-15.5)
[2021-04-02] MEDS: LEVOTHYROXINE 50 MCG TABLET PO SCH (04:45)
[2021-04-02 06:49] LABS: CALCIUM 8.1 mg/dL (8.5-10.1); CREATININE 1.6 mg/dL (0.6-1.0); GFR 30.5; MAGNESIUM 2.2 mg/dL (1.8-2.4); POTASSIUM 3.6 mmol/L (3.5-5.1)
--- NOTE | 2021-04-02 06:52 | CARD ---
MR#: [id number] Date of Study: 04/01/2021 Ordering Physician: JET TROTTER, Referring Physician: JET TROTTER, Tech: Cyndi Benson RUST APPROVED REPORT EXAM: Two-dimensional and M-mode echocardiogram with Doppler and color Doppler. Other Information Quality : AverageHR: 112bpm INDICATION Atrial Fibrillation 2D DIMENSIONS Left Atrium(2D)4.8 (1.6-4.0cm)IVSd1.0 (0.7-1.1cm) Aortic Root(2D)2.8 (2.0-3.7cm)LVDd4.4 (3.9-5.9cm) LVOT Diameter2.0 (1.8-2.4cm)PWd1.1 (0.7-1.1cm) LVDs3.1 (2.5-4.0cm)FS (%) 30.4 % SV51.1 mlLVEF(%)58.1 (>50%) Aortic Valve AoV Peak Wan.156.6cm/sAoV VTI26.0cm AO Peak GR.9.8mmHgLVOT VTI 16.19cm AO Mean GR.4mmHgAI P 1/2 [id number] Mitral Valve MV E Xyqctstx607.0cm/sMV E Peak Gr.101mmHg MV DECEL [id number] A Mqnvgcco24.0cm/s MV E Mean Gr.5mmHgE/A Ratio2.5 Tricuspid Valve TR P. Vnctidqb664kc/sRAP HGTQCIMT3daPq TR Peak Gr.80otJdNEVU69fxZz LEFT VENTRICLE The left ventricle is normal size. There is normal left ventricular wall thickness. The left ventricl e systolic function is normal The ejection fraction is estimated at 55% There is normal LV segmental wall motion. RIGHT VENTRICLE The right ventricle is normal size. There is normal right ventricular wall thickness. The right ventr icular systolic function is normal. ATRIA The left atrium is severely dilated. The right atrium size is normal. The interatrial septum is intac t with no evidence for an atrial septal defect or patent foramen ovale as noted on 2-D or Doppler issa ging. AORTIC VALVE The aortic valve is thickened but opens well. Doppler and Color Flow revealed mild to moderate aortic regurgitation. There is no significant aortic valvular stenosis. Calculated aortic valve area is 1.7 4 cm2 with maximum pressure gradient of 14 mmHg and mean pressure gradient of 5 mmHg. MITRAL VALVE The mitral valve is mildly thickened. There is no evidence of mitral valve prolapse. Mild to moderate mitral stenosis. Doppler and Color-flow revealed moderate mitral regurgitation. TRICUSPID VALVE The tricuspid valve is normal in structure and function. Doppler and Color Flow revealed moderate to severe tricuspid regurgitation with an estimated PAP 47 mmHg. There is no tricuspid valve stenosis. PULMONIC VALVE The pulmonic valve is not well visualized. Doppler and Color Flow revealed no pulmonic valvular regur gitation. GREAT VESSELS The aortic root is normal in size. The IVC is normal in size and collapses >50% with inspiration. PERICARDIAL EFFUSION There is no evidence of significant pericardial effusion. Critical Notification Critical Value: No <Conclusion> The left ventricle systolic function is normal The ejection fraction is estimated at 55% There is normal LV segmental wall motion. The left atrium is severely dilated. Mild to moderate aortic regurgitation. Mild to moderate mitral stenosis. Moderate mitral regurgitation. Moderate to severe tricuspid regurgitation with an estimated PAP 47 mmHg. There is no evidence of significant pericardial effusion. Signed by : Jet Trotter, Electronically Approved : 04/02/2021 06:51:55
[2021-04-02 07:00] VITALS: BP 134/60
[2021-04-02] MEDS: BUDESONIDE 0.5 MG/2 ML NEBU. NEB SCH (07:35)
[2021-04-02] MEDS: IPRATRPIUM/ALBUTEROL 0.5/2.5MG 3 ML NEBU. NEB SCH ×2 (07:35→12:02)
[2021-04-02] MEDS ORDERED: ASPIRIN ENTERIC COATED 81 MG TABLET.DR. PO SCH (08:00)
[2021-04-02 09:50] VITALS: BP 134/60
[2021-04-02 10:05] VITALS: BP 127/61
--- NOTE | 2021-04-02 10:37 | NUR ---
SS following up with discharge planning. SS reviewed pt chart and discussed with pt RN. Pt is currently on the BIPAP at 60%. Pt aspirating. NPO. ST ordered. Hemoglobin low. Blood today. Pulmonology consulted. Pt on IV Cefepime. Cardizem drip. Per RN, pt's oxygen desat's when off the BIPAP. Pt confused. Mitts in place. SS contacted pt's son and discussed. DPOA paperwork received. Pt's son requested to SS and RN that he would like pt to be DNR. Pt's son agreeable to informational with hospice with no preference of company. Referral phoned and faxed to [facility], ; fax [phone]. SS will continue to follow for discharge planning.
--- NOTE | 2021-04-02 10:44 | PDOC ---
PULMONARY PROGRESS NOTES DATE: 04/02/21 TIME: 10:44 Vitals Vital Signs Date Time Temp Pulse Resp B/P (MAP) Pulse Ox O2 Delivery O2 Flow Rate FiO2 04/02/21 10:05 97.3 114 20 127/61 97.3 04/02/21 08:00 Bi-pap 60.0 04/02/21 07:36 98 Lungs: Crackles Labs Laboratory Tests Test 03/31/21 12:00 03/31/21 14:00 03/31/21 14:55 04/01/21 02:55 Hemoglobin 7.7 g/dL (12.0-15.5) 7.7 g/dL (12.0-15.5) Hematocrit 24.8 % (36.0-47.0) 24.2 % (36.0-47.0) Mean Corpuscular Hemoglobin Concent 31 g/dL (31-37) 32 g/dL (31-37) Stool Occult Blood Negative (NEG) Nasal Screen MRSA (PCR) Negative (NEGATIVE) White Blood Count 5.3 x10^3/uL (4.0-11.0) Red Blood Count 2.43 x10^6/uL (3.50-5.40) Mean Corpuscular Volume 100 fL (79-100) Mean Corpuscular Hemoglobin 32 pg (25-35) Red Cell Distribution Width 22.9 % (11.5-14.5) Platelet Count 77 x10^3/uL (140-400) Neutrophils (%) (Auto) 83 % (31-73) Lymphocytes (%) (Auto) 6 % (24-48) Monocytes (%) (Auto) 11 % (0-9) Eosinophils (%) (Auto) 0 % (0-3) Basophils (%) (Auto) 1 % (0-3) Neutrophils # (Auto) 4.4 x10^3/uL (1.8-7.7) Lymphocytes # (Auto) 0.3 x10^3/uL (1.0-4.8) Monocytes # (Auto) 0.6 x10^3/uL (0.0-1.1) Eosinophils # (Auto) 0.0 x10^3/uL (0.0-0.7) Basophils # (Auto) 0.0 x10^3/uL (0.0-0.2) Sodium Level 141 mmol/L (136-145) Potassium Level 4.0 mmol/L (3.5-5.1) Chloride Level 106 mmol/L (98-107) Carbon Dioxide Level 24 mmol/L (21-32) Anion Gap 11 (6-14) Blood Urea Nitrogen 35 mg/dL (7-20) Creatinine 1.3 mg/dL (0.6-1.0) Estimated GFR (Cockcroft-Gault) 38.7 Glucose Level 108 mg/dL (70-99) Calcium Level 7.9 mg/dL (8.5-10.1) Phosphorus Level 5.6 mg/dL (2.6-4.7) Magnesium Level 2.0 mg/dL (1.8-2.4) Test 04/02/21 02:50 White Blood Count 3.8 x10^3/uL (4.0-11.0) Red Blood Count 2.19 x10^6/uL (3.50-5.40) Hemoglobin 6.8 g/dL (12.0-15.5) Hematocrit 21.8 % (36.0-47.0) Mean Corpuscular Volume 100 fL (79-100) Mean Corpuscular Hemoglobin 31 pg (25-35) Mean Corpuscular Hemoglobin Concent 31 g/dL (31-37) Red Cell Distribution Width 23.0 % (11.5-14.5) Platelet Count 79 x10^3/uL (140-400) Neutrophils (%) (Auto) 78 % (31-73) Lymphocytes (%) (Auto) 10 % (24-48) Monocytes (%) (Auto) 12 % (0-9) Eosinophils (%) (Auto) 0 % (0-3) Basophils (%) (Auto) 1 % (0-3) Neutrophils # (Auto) 2.9 x10^3/uL (1.8-7.7) Lymphocytes # (Auto) 0.4 x10^3/uL (1.0-4.8) Monocytes # (Auto) 0.5 x10^3/uL (0.0-1.1) Eosinophils # (Auto) 0.0 x10^3/uL (0.0-0.7) Basophils # (Auto) 0.0 x10^3/uL (0.0-0.2) Sodium Level 144 mmol/L (136-145) Potassium Level 3.6 mmol/L (3.5-5.1) Chloride Level 109 mmol/L (98-107) Carbon Dioxide Level 25 mmol/L (21-32) Anion Gap 10 (6-14) Blood Urea Nitrogen 45 mg/dL (7-20) Creatinine 1.6 mg/dL (0.6-1.0) Estimated GFR (Cockcroft-Gault) 30.5 Glucose Level 104 mg/dL (70-99) Calcium Level 8.1 mg/dL (8.5-10.1) Magnesium Level 2.2 mg/dL (1.8-2.4) Laboratory Tests Test 04/02/21 02:50 White Blood Count 3.8 x10^3/uL (4.0-11.0) Red Blood Count 2.19 x10^6/uL (3.50-5.40) Hemoglobin 6.8 g/dL (12.0-15.5) Hematocrit 21.8 % (36.0-47.0) Mean Corpuscular Volume 100 fL (79-100) Mean Corpuscular Hemoglobin 31 pg (25-35) Mean Corpuscular Hemoglobin Concent 31 g/dL (31-37) Red Cell Distribution Width 23.0 % (11.5-14.5) Platelet Count 79 x10^3/uL (140-400) Neutrophils (%) (Auto) 78 % (31-73) Lymphocytes (%) (Auto) 10 % (24-48) Monocytes (%) (Auto) 12 % (0-9) Eosinophils (%) (Auto) 0 % (0-3) Basophils (%) (Auto) 1 % (0-3) Neutrophils # (Auto) 2.9 x10^3/uL (1.8-7.7) Lymphocytes # (Auto) 0.4 x10^3/uL (1.0-4.8) Monocytes # (Auto) 0.5 x10^3/uL (0.0-1.1) Eosinophils # (Auto) 0.0 x10^3/uL (0.0-0.7) Basophils # (Auto) 0.0 x10^3/uL (0.0-0.2) Sodium Level 144 mmol/L (136-145) Potassium Level 3.6 mmol/L (3.5-5.1) Chloride Level 109 mmol/L (98-107) Carbon Dioxide Level 25 mmol/L (21-32) Anion Gap 10 (6-14) Blood Urea Nitrogen 45 mg/dL (7-20) Creatinine 1.6 mg/dL (0.6-1.0) Estimated GFR (Cockcroft-Gault) 30.5 Glucose Level 104 mg/dL (70-99) Calcium Level 8.1 mg/dL (8.5-10.1) Magnesium Level 2.2 mg/dL (1.8-2.4) Medications Active Scripts Medications Dose Route/Sig Max Daily Dose Days Date Category Dose Instructions Procrit (Epoetin Zeferino) 20,000 Unit/1 Ml Vial 40,000 IJ Q2WKS 04/01/21 Reported Valacyclovir (Valacyclovir Hcl) 500 Mg Tablet 1 Tab PO BID 03/31/21 Reported Trazodone Hcl 50 Mg Tablet 1-2 Tab PO PRN QHS PRN 03/31/21 Reported Timoptic 0.5% (Timolol Maleate) 10 Ml Drops 1 Drop EACHEYE BID 30 03/31/21 Reported Zoloft (Sertraline Hcl) 50 Mg Tablet 1 Tab PO DAILY 03/31/21 Reported Revlimid (Lenalidomide) 10 Mg Capsule 1 Cap PO DAILY 21 03/31/21 Reported one capsule on days 1-14 of 28 day cycle Latanoprost 0.005% Eye Drop (Latanoprost/Pf) 7.5 Ml Drops 1 Drop OU DAILY 03/31/21 Reported Hydroxyzine Hcl 25 Mg Tablet 1 Tab PO TID PRN 03/31/21 Reported Diltiazem 24HR Cd (Diltiazem Hcl) 120 Mg Cap.er.24h 1 Cap PO BID 30 03/31/21 Reported Eliquis (Apixaban) 2.5 Mg Tablet 2.5 Mg PO BID 03/31/21 Reported Impression . Full consult dictated RONAN SCHMIDT MD Apr 02, 2021 10:44
[2021-04-02 11:00] VITALS: BP 139/61
[2021-04-02 11:05] VITALS: BP 139/61
--- NOTE | 2021-04-02 12:45 | SNU/HH DC ---
DISCHARGE ORDERS DISCHARGE INFORMATION: DISCHARGE DATE: Apr 02, 2021 CONDITION ON DISCHARGE: Critical CODE STATUS: Code Status: DNR/DNI HOSPICE: HOSPICE: Yes HOSPICE EVAL & TREAT: Yes DISCHARGE MEDICATIONS: Home Meds Discontinued Reported Medications Epoetin Zeferino (PROCRIT) 20,000 Unit/1 Ml Vial, 95185 IJ Q2WKS for bone cancer, EACH 04/01/21 Valacyclovir Hcl (VALACYCLOVIR) 500 Mg Tablet, 1 TAB PO BID for antiviral, #30 TAB 11 Refills 03/31/21 Trazodone Hcl (TRAZODONE HCL) 50 Mg Tablet, 1-2 TAB PO PRN QHS PRN for sleep, #30 TAB 1 Refill 03/31/21 Timolol Maleate 0.5% (TIMOPTIC 0.5%) 10 Ml Drops, 1 DROP EACHEYE BID for glaucoma for 30 Days, #5 ML 0 Refills 03/31/21 Sertraline Hcl (ZOLOFT) 50 Mg Tablet, 1 TAB PO DAILY for depression, #30 TAB 2 R efills 03/31/21 Lenalidomide (REVLIMID) 10 Mg Capsule, 1 CAP PO DAILY for cancer for 21 Days, #21 CAP 0 Refills one capsule on days 1-14 of 28 day cycle 03/31/21 Latanoprost/Pf (Latanoprost 0.005% Eye Drop) 7.5 Ml Drops, 1 DROP OU DAILY for GLAUCOMA, DROP 03/31/21 Hydroxyzine Hcl (HYDROXYZINE HCL) 25 Mg Tablet, 1 TAB PO TID PRN for ITCHING, #30 TAB 03/31/21 Diltiazem Hcl (DILTIAZEM 24HR CD) 120 Mg Cap.er.24h, 1 CAP PO BID for heart rate for 30 Days, #60 CAP 0 Refills 03/31/21 Apixaban (ELIQUIS) 2.5 Mg Tablet, 2.5 MG PO BID for blood thinner, TAB 03/31/21 MICHELLE MARTINEZ MD Apr 02, 2021 12:45
--- NOTE | 2021-04-02 14:04 | PDOC ---
MEGAN DREW SUPERVISOR S[employer]KE [employer]OL 04/02/21 1404: CARDIO Progress Notes Date and Time Date of Service 04/02/21 Time of Evaluation 1015 Subjective Subjective: Other (on BiPAP) Vitals Vitals Vital Signs Date Time Temp Pulse Resp B/P (MAP) Pulse Ox O2 Delivery O2 Flow Rate FiO2 04/02/21 12:04 98 Venturi Mask 15.0 04/02/21 11:05 97.2 106 20 139/61 97.2 Weight Weight [ ] Input and Output Intake and Output Intake and Output 04/02/21 07:00 Intake Total 0 ml Output Total 650 ml Balance -650 ml Intake Oral 0 ml Output Urine Total 650 ml # Bowel Movements 1 Laboratory Labs Laboratory Tests Test 04/02/21 02:50 White Blood Count 3.8 x10^3/uL (4.0-11.0) Red Blood Count 2.19 x10^6/uL (3.50-5.40) Hemoglobin 6.8 g/dL (12.0-15.5) Hematocrit 21.8 % (36.0-47.0) Mean Corpuscular Volume 100 fL (79-100) Mean Corpuscular Hemoglobin 31 pg (25-35) Mean Corpuscular Hemoglobin Concent 31 g/dL (31-37) Red Cell Distribution Width 23.0 % (11.5-14.5) Platelet Count 79 x10^3/uL (140-400) Neutrophils (%) (Auto) 78 % (31-73) Lymphocytes (%) (Auto) 10 % (24-48) Monocytes (%) (Auto) 12 % (0-9) Eosinophils (%) (Auto) 0 % (0-3) Basophils (%) (Auto) 1 % (0-3) Neutrophils # (Auto) 2.9 x10^3/uL (1.8-7.7) Lymphocytes # (Auto) 0.4 x10^3/uL (1.0-4.8) Monocytes # (Auto) 0.5 x10^3/uL (0.0-1.1) Eosinophils # (Auto) 0.0 x10^3/uL (0.0-0.7) Basophils # (Auto) 0.0 x10^3/uL (0.0-0.2) Sodium Level 144 mmol/L (136-145) Potassium Level 3.6 mmol/L (3.5-5.1) Chloride Level 109 mmol/L (98-107) Carbon Dioxide Level 25 mmol/L (21-32) Anion Gap 10 (6-14) Blood Urea Nitrogen 45 mg/dL (7-20) Creatinine 1.6 mg/dL (0.6-1.0) Estimated GFR (Cockcroft-Gault) 30.5 Glucose Level 104 mg/dL (70-99) Calcium Level 8.1 mg/dL (8.5-10.1) Magnesium Level 2.2 mg/dL (1.8-2.4) Physical Exam HEENT: Neck Supple W Full Motion Chest: Symmetric LUNGS: Other (on BiPAP) Heart: irregularly irregular (AFIB) Abdomen: Soft N/T Extremities: No Edema Neurology: other (drowsy) Assessment Assessment 1. Atrial fibrillation, most probably permanent. Heart rate probably elevated due to respiratory distress. Continue IV Cardizem for rate control as patient unable to take oral. Hold Eliquis with anemia, thrombocytopenia. Echo with preserved LV systolic function. 2. Acute on chronic respiratory failure acute probable diastolic CHF, pleural effusion and probable pneumonia: s/p IV Lasix. Requiring BiPAP. Family considering Hospice 3. Anemia, thrombocytopenia: requiring transfusion; Per IM 4. JÚNIOR, ? CKD; Cr stable 5. Bone cancer: on chemotherapy 6. Hypothyroidism; TSH 12 Justicifation of Admission Dx: Justifications for Admission: Justification of Admission Dx: Yes JET MEJIA MD 04/02/21 1408: CARDIO Progress Notes Assessment Assessment Patient seen and examined. Agree with SEO ASSOCIATE's assessment and plan. Atrial fibrillation, most probably permanent with heart rate better controlled with Cardizem gtt. Change Cardizem to p.o. when able 2D echo showed LVEF 55% with mild to moderate mitral stenosis, moderate mitral regurgitation and moderate to severe tricuspid regurgitation. Acute on chronic diastolic heart failure better compensated Continue management for anemia per IM MEGAN DREW APRN Apr 02, 2021 14:04 JET MEJIA MD Apr 02, 2021 14:08
--- NOTE | 2021-04-07 10:45 | PDOC3 ---
[facility]-Discharge Summary Date of Admission: Date of Admission: Mar 31, 2021 Date of Discharge: Date of Discharge: Apr 02, 2021 Discharge Diagnosis: Discharge Diagnosis: Pancytopenia likely related to bone cancer Macrocytic anemia requiring 1 unit PRBC transfusion, possibly due to elemental deficiency A. fib RVR Tobacco abuse Left lower lobe pneumonia, possible gram-negative organisms Severe protein malnutrition Hospital Course: Hospital Course: 86-year-old female with past medical history of bone cancer currently on chemotherapy that was diagnosed 3 years ago, GERD, atrial fibrillation on Eliquis who comes in with shortness of breath. She was also found to be in A. fib RVR with heart rate in the 120s. Patient is also a chronic smoker. Upon my encounter this morning patient was saturating in the 70s while on a nonrebreather at 15 L. She was also given 1 unit PRBC for hemoglobin of 6.4. I gave her 20 mg of IV Lasix and she improved she is currently saturating 92% on a 15 L nonrebreathing mask. ABG is fairly normal without any signs of CO2 retention. She is mildly acidotic with a pH of 7.29. Repeat hemoglobin is 7.7. Creatinine is 1.3 troponins are 49 04/01/2021 No acute events overnight. Patient seen examined bedside. Patient currently on BiPAP and saturating at 60 to 80%. Able to get her O2 saturation up to 90%. Pulmonology has been consulted. Discussed CODE STATUS with patient and also son and son states that the patient still wants to be full code. A total of 35 minutes of critical care time was spent in reviewing chart, labs, and images. Discussed with RN and SW. Patient clinically worsening and requiring more o2 support. Discussed with son to make patient DNR and proceed with inpatient hospice care. rest of hospital c ourse was uneventful. Disposition: Disposition/Orders: D/C to Home w/ Hospice Activity: Activity: Resume previous activity Diet: Diet: NPO Medications: Home Meds Discontinued Reported Medications Epoetin Zeferino (PROCRIT) 20,000 Unit/1 Ml Vial, [address] IJ Q2WKS for bone cancer, EACH 04/01/21 Valacyclovir Hcl (VALACYCLOVIR) 500 Mg Tablet, 1 TAB PO BID for antiviral, #30 TAB 11 Refills 03/31/21 Trazodone Hcl (TRAZODONE HCL) 50 Mg Tablet, 1-2 TAB PO PRN QHS PRN for sleep, #30 TAB 1 Refill 03/31/21 Timolol Maleate 0.5% (TIMOPTIC 0.5%) 10 Ml Drops, 1 DROP EACHEYE BID for g laucoma for 30 Days, #5 ML 0 Refills 03/31/21 Sertraline Hcl (ZOLOFT) 50 Mg Tablet, 1 TAB PO DAILY for depression, #30 TAB 2 Refills 03/31/21 Lenalidomide (REVLIMID) 10 Mg Capsule, 1 CAP PO DAILY for cancer for 21 Days, #21 CAP 0 Refills one capsule on days 1-14 of 28 day cycle 03/31/21 Latanoprost/Pf (Latanoprost 0.005% Eye Drop) 7.5 Ml Drops, 1 DROP OU DAILY for GLAUCOMA, DROP 03/31/21 Hydroxyzine Hcl (HYDROXYZINE HCL) 25 Mg Tablet, 1 TAB PO TID PRN for ITCHING, #30 TAB 03/31/21 Diltiazem Hcl (DILTIAZEM 24HR CD) 120 Mg Cap.er.24h, 1 CAP PO BID for heart rate for 30 Days, #60 CAP 0 Refills 03/31/21 Apixaban (ELIQUIS) 2.5 Mg Tablet, 2.5 MG PO BID for blood thinner, TAB 03/31/21 No Active Prescriptions or Reported Meds Total Time: Total Time: Total time spent was 32 minutes in preparing scripts and discharge planning with SW and RN. Patient seen and examined on day of Discharge. Justicifation of Admission Dx: Justifications for Admission: Justification of Admission Dx: Yes MICHELLE MARTINEZ MD Apr 07, 2021 10:45
== END 2021-04-02 13:49 | disposition hospice, inpatient (51) | DRG 871 ==
LOC: 6 SOUTH 00:39
PROVIDERS: ADMIT Internal Medicine; ATTEND Internal Medicine
PROC: 5A09357 Assistance with Respiratory Ventilation, Less than 24 Consecutive Hours, Continuous Positive Airway Pressure (ICD-10-PCS; principal; 2021-03-31)
PROC: 30233N1 Transfusion of Nonautologous Red Blood Cells into Peripheral Vein, Percutaneous Approach (ICD-10-PCS; 2021-03-31)
PROC: 5A09357 Assistance with Respiratory Ventilation, Less than 24 Consecutive Hours, Continuous Positive Airway Pressure (ICD-10-PCS; 2021-04-01)
PROC: 5A09357 Assistance with Respiratory Ventilation, Less than 24 Consecutive Hours, Continuous Positive Airway Pressure (ICD-10-PCS; 2021-04-02)
DX: A41.9 Sepsis, unspecified organism (principal); J15.6 Pneumonia due to other Gram-negative bacteria; J96.20 Acute and chronic respiratory failure, unspecified whether with hypoxia or hypercapnia; I50.33 Acute on chronic diastolic (congestive) heart failure; E43 Unspecified severe protein-calorie malnutrition; I48.21 Permanent atrial fibrillation; E87.2 Acidosis; D61.818 Other pancytopenia; N17.9 Acute kidney failure, unspecified; C41.9 Malignant neoplasm of bone and articular cartilage, unspecified; Z68.1 Body mass index [BMI] 19.9 or less, adult; E03.9 Hypothyroidism, unspecified; Z51.5 Encounter for palliative care; E86.0 Dehydration; F17.210 Nicotine dependence, cigarettes, uncomplicated; I08.1 Rheumatic disorders of both mitral and tricuspid valves; K21.9 Gastro-esophageal reflux disease without esophagitis; N18.9 Chronic kidney disease, unspecified; Z79.01 Long term (current) use of anticoagulants; Z66 Do not resuscitate
CPT/HCPCS: 36415; 36430; 36600; 71045; 80048; 82274; 82607; 82805; 83735; 84100; 84436; 84443; 84484; 85007; 85014; 85018; 85025; 86850; 86900; 86901; 86920; 87449; 87641; 93306; 94640; 94660; 94760; J0692; J1940; J2060; J2405; J3490; P9016; C8929; G0378; J7626

== ENCOUNTER 2021-04-02 14:10 | Inpatient (IN) | payer OTHER ==
[~2021-04-02 14:10] MED LIST: APIX2.5T PO; CETI10TA16 PO; DILT120C99 PO; EPOE200014 IJ; FAMO20TA5 PO; HYDR25TA PO; HYDR30CR74 TP; LATA7.5D OU; LENA10CA PO; PRED20TA PO; SERT50TA PO; TIMO10DR5 EACHEYE; TRAZ-118 PO; TRIA15OI TP; VALA500T9 PO
[2021-04-02] MEDS ORDERED: IV NORMAL SALINE 1000ML BAG 1,000 ML IV SCH (14:30)
[2021-04-02] MEDS ORDERED: ATROPINE 1% OPHTH SOLUTION 5ML BOTTLE. SL PRN (14:30)
[2021-04-02] MEDS ORDERED: MORPHINE SULFATE 4 MG/ML INJ. IVP PRN (14:30)
[2021-04-02] MEDS ORDERED: ACETAMINOPHEN 650 MG SUPP.RECT. PR PRN (14:30)
[2021-04-02] MEDS ORDERED: MORPHINE SULFATE 2 MG/ML INJ. IVP PRN (14:30)
[2021-04-02] MEDS: MORPHINE SULFATE 4 MG/ML INJ. IVP PRN ×3 (16:45→18:23)
[2021-04-02 19:37] VITALS: BP 82/46
--- NOTE | 2021-04-02 19:41 | CONS ---
DATE OF CONSULTATION: 04/02/2021 ATTENDING PHYSICIAN: Dr. Isrrael Villalba. REASON FOR CONSULTATION: The patient is seen in pulmonary consultation at the request of Dr. Villalba for acute respiratory failure, requiring noninvasive ventilation. HISTORY OF PRESENT ILLNESS: The patient is an 86-year-old that has a prior history of AFib, lung cancer, presented to [facility] with worsening shortness of breath. She has been short of breath now for quite some time. The patient was transferred to [place] for further evaluation. She had a chest x-ray at [facility] which I reviewed, revealing bilateral pulmonary infiltrates compatible with CHF. Her x-ray here is worsening. She has bilateral effusions, bilateral infiltrates compatible with worsening CHF. The patient underwent an arterial blood gas revealing a pH of 7.29, PaCO2 of 44, pO2 of 65. White count was low. She had a hemoglobin of 6.4. She was transfused. She is short of breath. I was asked to see her in consultation. She has had a previous echocardiogram revealing pulmonary artery pressure of 47, ejection fraction was 55. The patient appeared to be critically ill and actively dying. She was weak. She was unable to provide much history, but she was comfortable. PAST MEDICAL HISTORY: Otherwise remarkable for chronic AFib, chronic heart failure, bone cancer, currently on chemotherapy. ALLERGIES: No known drug allergies. REVIEW OF SYSTEMS: Unobtainable secondary to the patient's condition. CURRENT MEDICATIONS: List was reviewed. She is receiving IV diltiazem. REVIEW OF SYSTEMS: Unobtainable secondary to the patient's condition. PHYSICAL EXAMINATION: VITAL SIGNS: Since admission, she has been afebrile. She is currently on nonrebreather. She appears to be actively dying. Somewhat uncomfortable. HEENT: Eyes: The sclerae were nonicteric. NECK: Jugular venous distention was elevated. CHEST: Bilateral rhonchi. CARDIOVASCULAR: Regular rate and rhythm with S1, S2, no S3. ABDOMEN: Soft. EXTREMITIES: Marked edema. NEUROLOGIC: The patient was severely weak. She was unable to lift the legs off the bed. LABORATORY DATA: Labs were reviewed as indicated above. IMPRESSION: 1. Acute hypoxemic respiratory failure secondary to acute congestive heart failure. 2. Abnormal x-ray revealing bilateral infiltrates and effusion secondary to congestive heart failure. 3. Severe pulmonary hypertension. 4. Metabolic acidosis. 5. Leukopenia. 6. Acute blood loss anemia. 7. Acute on chronic diastolic heart failure. 8. Thrombocytopenia. 9. Bone cancer, on chemotherapy. 10. Acute on chronic renal failure. DISCUSSION: After my evaluation, I had discussion with the RN, the patient is currently being considered for hospice service, totally agree. I would not recommend aggressive care. She is a do not resuscitate. I recommend IV morphine for comfort, p.r.n. BiPAP. Continue oxygen supplementation. I do appreciate the privilege in sharing in the patient's care. IRENE DR: Salome TID: [id number]
--- NOTE | 2021-04-03 02:00 | NUR ---
This hospice pt went asystole and passed at 2203 on 04/02/21. This RN was present at bedside along with the pt's housing inspector. Pt's son had declined to come to the hospital earlier in the shift, so he was notified via telephone of her passing. All of her belongings were placed in a bag and accompanied her to the home per family request. Dr Garner was left a message through the answering service.
== END 2021-04-03 00:20 | DRG 291 ==
LOC: 6 SOUTH 14:10
PROVIDERS: ADMIT Internal Medicine; ATTEND Internal Medicine
DX: I50.33 Acute on chronic diastolic (congestive) heart failure (principal); J96.01 Acute respiratory failure with hypoxia; D62 Acute posthemorrhagic anemia; E87.2 Acidosis; I48.20 Chronic atrial fibrillation, unspecified; N17.9 Acute kidney failure, unspecified; C79.51 Secondary malignant neoplasm of bone; D69.6 Thrombocytopenia, unspecified; D72.819 Decreased white blood cell count, unspecified; I27.20 Pulmonary hypertension, unspecified; N18.9 Chronic kidney disease, unspecified; Z66 Do not resuscitate; Z85.118 Personal history of other malignant neoplasm of bronchus and lung
CPT/HCPCS: J2060; J2270; G0378